=== PATIENT | female | born 1995 ===

== ENCOUNTER 2017-09-19 12:36 | Emergency (ER) | payer OTHER ==
--- NOTE | 2017-09-19 12:42 | UC ---
Complaint Female HPI - HPI Summary HPI Summary: 22 yo female presents with a sore throat that was mild about 1.5-2 weeks ago and seemed to go away. Over the last 2 days her sore throat has significantly increased in pain. This morning she noticed blood in her urine and developed pain with urination. She has not taken anything OTC. Denies fever, chills, headache, fatigue, SOB, chest pain, or rash. Denies vaginal discharge or bleeding. - History Of Current Complaint Stated Complaint: SORE THROAT Time Seen by Provider: 09/19/17 12:42 Hx Obtained From: Patient Onset/Duration: Gradual Onset Timing: Constant Severity Initially: Mild Severity Currently: Moderate Pain Intensity: 5 Pain Scale Used: 0-10 Numeric - Allergies/Home Medications Allergies/Adverse Reactions: Allergies Allergy/AdvReac Type Severity Reaction Status Date / Time No Known Allergies Allergy Verified 09/19/17 13:11 PMH/Surg Hx/FS Hx/Imm Hx - Additional Past Medical History Additional PMH: None Previously Healthy: Yes - Surgical History Surgical History: None - Family History Known Family History: Positive: None - Social History Occupation: Student Lives: With Family Alcohol Use: None Substance Use Type: None Smoking Status (MU): Never Smoked Tobacco Review of Systems Constitutional: Negative Skin: Negative Eyes: Negative ENT: Sore Throat Respiratory: Negative Cardiovascular: Negative Gastrointestinal: Negative Genitourinary: Dysuria, Hematuria Neurovascular: Negative Neurological: Negative Psychological: Negative All Other Systems Reviewed And Are Negative: Yes Physical Exam - Summary Physical Exam Summary: GENERAL: NAD. WDWN. No pain distress. SKIN: No rashes, sores, lesions, or open wounds. HEENT: Head: AT/NC Eyes: Conjunctiva clear without inflammation or discharge. Ears: Hearing grossly normal. TMs intact, no bulging, erythema, or edema. Nose: Nasal mucosa pink and moist. NTTP maxillary and frontal sinus. Throat: Posterior oropharynx moderate erythema and 2+ tonsillar enlargement. No exudates. Uvula midline. No hoarse voice or muffled voice. NECK: Supple. Moderate TTP tonsillar with mild LAD. CHEST: CTAB. No r/r/w. No accessory muscle use. Breathing comfortably and in no distress. CV: RRR. Without m/r/g. Pulses intact. Brisk cap refill. ABDOMEN: Soft. NTTP. No distention or guarding. No organomegaly. No CVA tenderness. Bowel sounds present NEURO: Alert. CN II-XII grossly intact. PSYCH: Age appropriate behavior. Triage Information Reviewed: Yes Vital Signs: Vital Signs: Temp Pulse Resp BP Pulse Ox 98.5 F 103 16 100/64 100 09/19/17 13:01 09/19/17 13:01 09/19/17 13:01 09/19/17 13:01 09/19/17 13:01 Laboratory Tests 09/19/17 09/19/17 13:19 13:21 POC Urine Color Red A POC Urine Clarity Other POC Urine pH 8.5 POC Ur Specif [place] <= 1.005 L POC Urine Protein 3+ A POC Ur Glucose (UA) Trace A POC Urine Ketones 4+ A POC Urine Blood 3+ A POC Urine Nitrite Positive A POC Urine Bilirubin 3+ A POC Urine Urobilinogen >=8.0 A POC U Leukocyte Esteras 3+ A Group A Strep Rapid Negative Vital Signs Reviewed: Yes Complaint Female Dx - Course Course Of Treatment: POC strep negative. See above for UA results. Her presentation is highly suspicious for post-strep glomerulonephritis. She is non- toxic appearing. 1gm Ceftriaxone was given in the clinic. Rx for Augmentin. Draw for CBC and CMP. - Differential Dx/Diagnosis Provider Diagnoses: post-strep glomerulonephritis Discharge - Sign-Out/Discharge Documenting (check all that apply): Patient Departure - Discharge Plan Condition: Stable Disposition: HOME Prescriptions: Amoxicillin/Clavulanate TAB* [Augmentin TAB 875*] 875 mg PO BID #20 tab Patient Education Materials: Strep Throat (ED), Post-streptococcal Glomerulonephritis (DC) Print Language: [place] Referrals: No Primary Care Phys,NOPCP [Primary Care Provider] - Additional Instructions: If you develop a fever, shortness of breath, chest pain, new or worsening symptoms - please call your PCP or go to the ED. - Billing Disposition and Condition Condition: STABLE Disposition: Home
[2017-09-19 13:11] VITALS: BP 100/64
[2017-09-19] MEDS ORDERED: cefTRIAXone VIAL(*) 1,000 MG VIAL IM ONE (13:28)
[2017-09-19] MEDS ORDERED: Lidocaine 1% MPF* 2 ML VIAL INJ ONE (13:29)
[2017-09-19] MEDS ORDERED: Lidocaine 1%* 5 ML VIAL ONE (13:33)
[2017-09-19] MEDS ORDERED: Lidocaine 1%* 5 ML VIAL INJ ONE (13:40)
[2017-09-20 13:55] LABS: ABS Basophils 0.1 10^3/ul (0-0.2); ABS Eosinophils 0 10^3/ul (0-0.6); ABS Lymphocytes 1.4 10^3/ul (1.0-4.8); ABS Monocytes 0.9 10^3/ul (0-0.8); ABS Neutrophils 12.5 10^3/ul (1.5-7.7); ABS Nucleated RBC 0 10^3/ul; Eosinophil % 0.3 % (0-6); Hematocrit 41 % (35-47); Hemoglobin 13.9 g/dl (12.0-16.0); Lymphocyte % 9.3 % (25-47); Mean Corpuscular HGB Conc 34 g/dl (31-36); Mean Corpuscular Hemoglobin 31 pg (27-31); Mean Corpuscular Volume 91 fL (80-97); Mean Platelet Volume 8.5 um3 (7.4-10.4); Nucleated Red Blood Cells % 0; Platelet Count 343 10^3/ul (150-450); Red Blood Count 4.49 10^6/ul (4.00-5.40); Red Cell Distribution Width 13 % (10.5-15); White Blood Count 14.9 10^3/ul (3.5-10.8)
[2017-09-20 14:13] LABS: EGFR Non-African American 104.6 (>60)
--- NOTE | 2017-09-20 16:15 | UC ---
- Progress Note Progress Note: CBC with WBC 14.9. Neuts 12.5. CMP WNL. Please call pt and see how she is feeling. 1) If she has developed a fever or feels significantly worse - please go to the ED Discharge - Sign-Out/Discharge Documenting (check all that apply): Post-Discharge Follow Up - Discharge Plan Condition: Stable Disposition: HOME Prescriptions: Amoxicillin/Clavulanate TAB* [Augmentin TAB 875*] 875 mg PO BID #20 tab Patient Education Materials: Strep Throat (ED), Post-streptococcal Glomerulonephritis (DC) Print Language: [place]AB[place] Referrals: No Primary Care Phys,NOPCP [Primary Care Provider] - Additional Instructions: If you develop a fever, shortness of breath, chest pain, new or worsening symptoms - please call your PCP or go to the ED. - Billing Disposition and Condition Condition: STABLE Disposition: Home
== END 2017-09-19 14:00 | disposition home or self-care (01) ==
LOC: UCEAST 12:36
DX: N05.9 Unspecified nephritic syndrome with unspecified morphologic changes (principal); R30.0 Dysuria; R31.9 Hematuria, unspecified
CPT/HCPCS: 36415; 80053; 81003; 85025; 86060; 87086; 87651; 90471; 99202; G0463; J0696